=== PATIENT | male | born 1950 | race Caucasian/White ===

== ENCOUNTER 2018-02-14 11:17 | Inpatient (IN) ==
--- NOTE | 2018-02-14 13:01 | ED ---
HPI General Chief Complaint: Recheck/Abnormal Lab/Rx Stated Complaint: Abnormal Labs Time Seen by Provider: 02/14/18 12:47 Source: patient Mode of arrival: ambulatory Limitations: no limitations History of Present Illness HPI narrative: 67-year-old male presents to the emergency room for evaluation of abnormal labs. Patient had lab work done this morning at the [facility]. They called him this afternoon and told him to go to the emergency room; he is not sure which lab is abnormal. Patient states he has been having bright red blood per rectum for the past year intermittently. States he has the urge to go to the bathroom several times throughout the morning and when he sits down only gas comes out. When he wipes, there is just blood. He was told that he has external hemorrhoids but the doctor did not seem concerned about them when they started a year ago. Patient denies any significant abdominal pain or palpitations. States he felt lightheaded when he was on his Parkinson's medication but they changed it a week ago and the symptoms have subsided. He has history of Parkinson's, diabetes, hypertension, and hypercholesterolemia. He also takes a baby aspirin daily. His last colonoscopy was 5 years ago and unremarkable. His next scheduled colonoscopy is July,. complaint: abnormal lab Description of abnormal result: Sent by [facility] for abnormal labs Symptoms since prior visit: no new symptoms Context: called for abnormal lab result Associated symptoms: none Related Data Home Medications Medication Instructions Recorded Confirmed Tylenol PM Extra Strength PO HS 02/14/18 acetaminophen [Tylenol] mg PO QAM PRN 02/14/18 02/14/18 aspirin 81 mg PO DAILY 02/14/18 02/14/18 cholecalciferol (vitamin D3) unit PO DAILY 02/14/18 [Vitamin D3] cyanocobalamin (vitamin B-12) mcg PO DAILY 02/14/18 [Vitamin B-12] glipizide 20 mg PO BID 02/14/18 02/14/18 lisinopril mg PO DAILY 02/14/18 lovastatin mg PO DAILY 02/14/18 metformin 500 mg PO BID 02/14/18 02/14/18 multivitamin [Multiple Vitamins] 1 tab PO DAILY 02/14/18 02/14/18 omega 2-akz-nuh-fish oil [Fish Oil] 1,000 mg PO BID 02/14/18 02/14/18 pyridoxine (vitamin B6) [Vitamin mg PO DAILY 02/14/18 B-6] Allergies Allergy/AdvReac Type Severity Reaction Status Date / Time No Known Allergies Allergy Verified 02/14/18 12:27 Review of Systems ROS: all other systems reviewed are negative PMFSH Family History Family History Mother Family history of lung cancer Social History Social History Substance History: No History of Abuse Smoking Status: Former smoker How Often Do You Have a Drink Containing Alcohol: 2 to 3 times a week Recent Travel in [facility] within the Last 8 Weeks: No Recent Out of Country Travel within the Last 8 Weeks: No Immunization History Tetanus Immunization: <5 Years Hx Influenza Vaccine This Season: Yes Exam Narrative Exam Narrative: GENERAL: Well-nourished, well-developed male in no acute distress. Afebrile. Ambulatory. SKIN: Focused skin assessment warm/dry. HEAD: Normocephalic. EYES: No scleral icterus. No injection or drainage. NECK: Supple, trachea midline. No JVD or lymphadenopathy. CARDIOVASCULAR: Regular rate. Irregular rhythm without murmurs, gallops, or rubs. RESPIRATORY: Breath sounds equal bilaterally. No accessory muscle use. GASTROINTESTINAL: Abdomen soft, non-tender, nondistended. MUSCULOSKELETAL: No cyanosis, or edema. RECTAL EXAM: Examined in the presence of a nurse. No masses or tenderness, stool is brown. Procedures Hemaprompt Stool Procedural Steps Taken: specimen placed in appropriate test area, developer placed on specimen and control areas and controls appropriately positive and negative Hemaprompt Stool Result: positive Course Initial Documented Vital Signs Temperature 98.9 F 02/14/18 11:21 Pulse Rate 72 02/14/18 11:21 Respiratory Rate 16 02/14/18 11:21 Blood Pressure 177/77 H 18 11:21 Pulse Oximetry 95 02/14/18 11:21 Last Documented Vital Signs Temperature 98.9 F 02/14/18 11:21 Pulse Rate 65 02/14/18 18:17 Respiratory Rate 20 02/14/18 18:00 Blood Pressure 173/74 H 02/14/18 18:00 Pulse Oximetry 96 02/14/18 18:18 Medical Decision Making COLIN Attestation COLIN supervised visit: Yes Attestation: I, Dr. Amezquita, have reviewed the advance practice practitioner's documentation and am in agreement, met with the patient face to face, made the diagnosis, and the medical decision making was done by me. 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 Patient also has anemia. He will be admitted to the hospital with a colorectal consult. Patient has been typed and crossed. At this point he does not require transfusion. [facility] Narrative Medical decision making narrative: 67-year-old male presents to the emergency room for evaluation of abnormal labs; he was sent by the [facility]. He has had associated bright red blood per rectum for the past year that worsened over the past several months. Patient was originally told he was having bleeding hemorrhoids. He denies any lightheadedness, palpitations, or weakness. Physical exam is reassuring. Patient is well-appearing. Rectal exam reveals significant, bright red blood. Vital signs stable. IV access established basic labs obtained. CBC shows hemoglobin of 7.7. CMP shows evidence of kidney dysfunction with a creatinine of 1.68. CT of the abdomen and pelvis shows a large mass in the rectum with probable metastases to the lungs. Patient was informed of the findings with recommendation to stay for GI consultation. He understands and agrees to plan. I spoke to Dr. Shetty who agrees to admit this patient to his service. Medical Screen Exam Complete: Yes Emergency Medical Condition: Yes Differential Diagnosis Differential Diagnosis: Anemia, iron deficiency anemia, GI bleed, diverticulosis , cancer, electrolyte abnormality Lab Data Result diagrams: 02/14/18 18:10 02/14/18 18:10 Lab Results 02/14/18 02/14/18 02/14/18 Range/Units 13:30 13:30 13:30 WBC 8.9 (4.0-11.0) th/mm3 RBC 2.46 L (4.50-5.90) mil/mm3 Hgb 7.7 L (13.0-17.0) gm/dL Hct 23.9 L (39.0-51.0) % MCV 97.3 (80.0-100.0) fL MCH 31.4 (27.0-34.0) pg MCHC 32.3 (32.0-36.0) % RDW 14.5 (11.6-17.2) % Plt Count 277 (150-450) th/mm3 MPV 9.7 (7.0-11.0) fL Neut % (Auto) 57.2 (16.0-70.0) % Lymph % (Auto) 28.6 (9.0-44.0) % Wallace % (Auto) 12.2 H (0.0-8.0) % Eos % (Auto) 1.4 (0.0-4.0) % Baso % (Auto) 0.6 (0.0-2.0) % Neut # (Auto) 5.1 (1.8-7.7) th/mm3 Lymph # (Auto) 2.6 (1.0-4.8) th/mm3 Wallace # (Auto) 1.1 H (0.0-0.9) th/mm3 Eos # (Auto) 0.1 (0.0-0.4) th/mm3 Baso # (Auto) 0.1 (0.0-0.2) th/mm3 WBC Differential . Differential Comment Auto diff final PT 10.3 (9.8-11.6) sec INR 1.0 Ratio APTT 23.2 L (24.3-30.1) sec Sodium 141 (136-145) meq/L Potassium 5.1 (3.5-5.1) meq/L Chloride 108 H (98-107) meq/L Carbon Dioxide 26.3 (21.0-32.0) meq/L Anion Gap 7 (5-15) meq/L BUN 34 H (7-18) mg/dL Creatinine 1.68 H (0.60-1.30) mg/dL Estimated GFR 41 L (>89) mL/min Random Glucose 138 H (74-106) mg/dL Calcium 8.8 (8.5-10.1) mg/dL Total Bilirubin 0.2 (0.2-1.0) mg/dL AST 10 L (15-37) U/L ALT 15 (12-78) U/L Alkaline Phosphatase 51 (45-117) U/L Total Protein 7.2 (6.4-8.2) g/dL Albumin 3.5 (3.4-5.0) g/dL Blood Type Blood Type Recheck Antibody Screen MTS Gel Crossmatch Bld Prod Order Comment 02/14/18 02/14/18 02/14/18 Range/Units 13:30 17:47 18:10 WBC 10.7 (4.0-11.0) th/mm3 RBC 2.30 L (4.50-5.90) mil/mm3 Hgb 7.4 L (13.0-17.0) gm/dL Hct 22.3 L (39.0-51.0) % MCV 96.7 (80.0-100.0) fL MCH 32.0 (27.0-34.0) pg MCHC 33.1 (32.0-36.0) % RDW 14.5 (11.6-17.2) % Plt Count 256 (150-450) th/mm3 MPV 9.5 (7.0-11.0) fL Neut % (Auto) 60.0 (16.0-70.0) % Lymph % (Auto) 27.8 (9.0-44.0) % Wallace % (Auto) 10.0 H (0.0-8.0) % Eos % (Auto) 1.9 (0.0-4.0) % Baso % (Auto) 0.3 (0.0-2.0) % Neut # (Auto) 6.4 (1.8-7.7) th/mm3 Lymph # (Auto) 3.0 (1.0-4.8) th/mm3 Wallace # (Auto) 1.1 H (0.0-0.9) th/mm3 Eos # (Auto) 0.2 (0.0-0.4) th/mm3 Baso # (Auto) 0.0 (0.0-0.2) th/mm3 WBC Differential . Differential Comment Auto diff final PT (9.8-11.6) sec INR Ratio APTT (24.3-30.1) sec Sodium (136-145) meq/L Potassium (3.5-5.1) meq/L Chloride (98-107) meq/L Carbon Dioxide (21.0-32.0) meq/L Anion Gap (5-15) meq/L BUN (7-18) mg/dL Creatinine (0.60-1.30) mg/dL Estimated GFR (>89) mL/min Random Glucose (74-106) mg/dL Calcium (8.5-10.1) mg/dL Total Bilirubin (0.2-1.0) mg/dL AST (15-37) U/L ALT (12-78) U/L Alkaline Phosphatase (45-117) U/L Total Protein (6.4-8.2) g/dL Albumin (3.4-5.0) g/dL Blood Type A Positive Blood Type Recheck Required Antibody Screen Negative MTS Gel Crossmatch See Detail Bld Prod Order Comment 02/14/18 Range/Units 18:10 WBC (4.0-11.0) th/mm3 RBC (4.50-5.90) mil/mm3 Hgb (13.0-17.0) gm/dL Hct (39.0-51.0) % MCV (80.0-100.0) fL MCH (27.0-34.0) pg MCHC (32.0-36.0) % RDW (11.6-17.2) % Plt Count (150-450) th/mm3 MPV (7.0-11.0) fL Neut % (Auto) (16.0-70.0) % Lymph % (Auto) (9.0-44.0) % Wallace % (Auto) (0.0-8.0) % Eos % (Auto) (0.0-4.0) % Baso % (Auto) (0.0-2.0) % Neut # (Auto) (1.8-7.7) th/mm3 Lymph # (Auto) (1.0-4.8) th/mm3 Wallace # (Auto) (0.0-0.9) th/mm3 Eos # (Auto) (0.0-0.4) th/mm3 Baso # (Auto) (0.0-0.2) th/mm3 WBC Differential Differential Comment PT (9.8-11.6) sec INR Ratio APTT (24.3-30.1) sec Sodium 140 (136-145) meq/L Potassium 5.1 (3.5-5.1) meq/L Chloride 107 (98-107) meq/L Carbon Dioxide 24.1 (21.0-32.0) meq/L Anion Gap 9 (5-15) meq/L BUN 34 H (7-18) mg/dL Creatinine 1.42 H (0.60-1.30) mg/dL Estimated GFR 50 L (>89) mL/min Random Glucose 79 (74-106) mg/dL Calcium 8.8 (8.5-10.1) mg/dL Total Bilirubin (0.2-1.0) mg/dL AST (15-37) U/L ALT (12-78) U/L Alkaline Phosphatase (45-117) U/L Total Protein (6.4-8.2) g/dL Albumin (3.4-5.0) g/dL Blood Type Blood Type Recheck Antibody Screen MTS Gel Crossmatch Bld Prod Order Comment Imaging Data Radiologist's impression: Abdomen/Pelvis CT 02/14/18 12:54 CONCLUSION: 1. Abnormal soft tissue in the rectum suspicious for rectal mass. Recommend direct visualization. Numerous small nodules at both lung bases suspicious for metastatic disease. Further evaluation with chest CT recommended. 2. Tiny nonobstructing right renal calculus. Small hyperdensities in the right kidney probably represent small hemorrhagic or proteinaceous cysts. Discharge Plan Discharge Disposition Patient Disposition: 30 Still Patient Discharge Condition Condition: Stable Physicians Team ED Provider: Raffy Amezquita ED Midlevel Provider: Audra Lakhani Primary Care Provider: [facility]ician 's Attending Provider: Elisabeth Shetty Other Providers: Maru Guardado Status ED Status: Admitted Patient
[2018-02-14 13:45] LABS: Baso # (Auto) 0.1 th/mm3 (0.0-0.2); Baso % (Auto) 0.6 % (0.0-2.0); Eos # (Auto) 0.1 th/mm3 (0.0-0.4); Eos % (Auto) 1.4 % (0.0-4.0); Hematocrit 23.9 % (39.0-51.0); Hemoglobin 7.7 gm/dL (13.0-17.0); Lymph # (Auto) 2.6 th/mm3 (1.0-4.8); Lymph % (Auto) 28.6 % (9.0-44.0); Mean Corpuscular HGB Conc 32.3 % (32.0-36.0); Mean Corpuscular Hemoglobin 31.4 pg (27.0-34.0); Mean Corpuscular Volume 97.3 fL (80.0-100.0); Mean Platelet Volume 9.7 fL (7.0-11.0); Mono # (Auto) 1.1 th/mm3 (0.0-0.9); Mono % (Auto) 12.2 % (0.0-8.0); Neut # (Auto) 5.1 th/mm3 (1.8-7.7); Neut % (Auto) 57.2 % (16.0-70.0); Platelet Count 277 th/mm3 (150-450); Red Blood Count 2.46 mil/mm3 (4.50-5.90); Red Cell Distribution Width 14.5 % (11.6-17.2); White Blood Count 8.9 th/mm3 (4.0-11.0)
[2018-02-14 13:54] LABS: Activated Partial Thrombo Time 23.2 sec (24.3-30.1); Prothrombin Time 10.3 sec (9.8-11.6)
[2018-02-14 14:06] LABS: Albumin 3.5 g/dL (3.4-5.0); Anion Gap 7 meq/L (5-15); Aspartate Aminotransferase 10 U/L (15-37); Blood Urea Nitrogen 34 mg/dL (7-18); Calcium 8.8 mg/dL (8.5-10.1); Carbon Dioxide 26.3 meq/L (21.0-32.0); Chloride 108 meq/L (98-107); Glomerular Filtration Rate 41 mL/min (>89); Glucose,Random 138 mg/dL (74-106); Potassium 5.1 meq/L (3.5-5.1); Sodium 141 meq/L (136-145)
[2018-02-14 14:10] LABS: Alanine Aminotransferase 15 U/L (12-78); Alkaline Phosphatase 51 U/L (45-117); Total Protein 7.2 g/dL (6.4-8.2)
--- NOTE | 2018-02-14 14:13 | CT ---
EXAM DATE: 02/14/2018 1:55 PM EDT AGE/SEX: 67 years / Male INDICATIONS: Rectal bleeding on and off for one year. CLINICAL DATA: This is the patient's initial encounter. Patient reports that signs and symptoms have been present for 1 day and indicates a pain score of 6/10. MEDICAL/SURGICAL HISTORY: Diabetes. Hypertension. Parkinson's disease. None. RADIATION DOSE: 13.15 CTDI (mGy) COMPARISON: No prior exams available for comparison. TECHNIQUE: Multiple contiguous axial images were obtained through the abdomen. Images were obtained using multiple row detector helical technique. Using automated exposure control and adjustment of the mA and/or kV according to patient size, radiation dose was kept as low as reasonably achievable to o btain optimal diagnostic quality images. DICOM format image data is available electronically for rev iew and comparison. FINDINGS: There is abnormal soft tissue in the rectum. Margins are difficult to delineate. Findings are suspici ous for a rectal mass. This would be better evaluated with direct visualization. There is mild constipation. No bowel obstruction. Lung bases demonstrate numerous bilateral pulmonary nodules most characteristic of metastatic disease . Largest near the inferior right fissure measures about 1.4 cm in diameter. No acute findings in the liver, spleen, adrenals, kidneys or pancreas. Tiny nonobstructing right atif l calculus. Multiple small suspected proteinaceous cysts in the right kidney. No calcified gallstones or biliary ductal dilatation. No acute bony abnormalities. CONCLUSION: 1. Abnormal soft tissue in the rectum suspicious for rectal mass. Recommend direct visualization. Nu merous small nodules at both lung bases suspicious for metastatic disease. Further evaluation with ch est CT recommended. 2. Tiny nonobstructing right renal calculus. Small hyperdensities in the right kidney probably repre sent small hemorrhagic or proteinaceous cysts. Electronically signed by: Ez Davis MD 02/14/2018 2:12 PM EDT
[2018-02-14] MEDS ORDERED: Sodium Chlor 0.9% Inj 250 ML IV.SIG SCH (18:00)
[2018-02-14 18:45] LABS: Baso % (Auto) 0.3 % (0.0-2.0); Eos # (Auto) 0.2 th/mm3 (0.0-0.4); Eos % (Auto) 1.9 % (0.0-4.0); Hematocrit 22.3 % (39.0-51.0); Hemoglobin 7.4 gm/dL (13.0-17.0); Lymph % (Auto) 27.8 % (9.0-44.0); Mean Corpuscular HGB Conc 33.1 % (32.0-36.0); Mean Corpuscular Volume 96.7 fL (80.0-100.0); Mean Platelet Volume 9.5 fL (7.0-11.0); Mono # (Auto) 1.1 th/mm3 (0.0-0.9); Neut # (Auto) 6.4 th/mm3 (1.8-7.7); Platelet Count 256 th/mm3 (150-450); Red Cell Distribution Width 14.5 % (11.6-17.2); White Blood Count 10.7 th/mm3 (4.0-11.0)
[2018-02-14 18:49] LABS: Calcium 8.8 mg/dL (8.5-10.1); Carbon Dioxide 24.1 meq/L (21.0-32.0); Potassium 5.1 meq/L (3.5-5.1)
--- NOTE | 2018-02-14 19:18 | P.HPIM ---
History of Present Illness Service: [facility] hospitalist Primary Care Physician: Physician [facility] Chief Complaint: Abnormal labs, rectal bleeding History of Present Illness: 67-year-old male with a medical history significant for hypertension, hyperlipidemia, diabetes, Parkinson's disease sent from the [facility] for abnormal labs. Patient reports he has been having intermittent bright red blood per rectum for the past year. He reports the severity has gotten worst over the past 2 months. He also noted soft pencil like caliber stool. He denies significant weight loss or night sweats. His last colonoscopy was about 5 years ago and he is scheduled to have a repeat colonoscopy in 2019. He reports he previously saw his doctor about the rectal bleeding and was told he had external hemorrhoids. He denies any nausea or vomiting. A CAT scan in the emergency room revealed a possible rectal mass concerning for malignancy. He is a myoglobin was found to be 7.7. He reports some baseline shortness of breath with exertion but denies chest pain or lightheadedness. - Diagnosis (1) Acute GI bleeding (2) Rectal mass (3) Lung mass (4) Symptomatic anemia (5) CAROLYNN (acute kidney injury) Inpatient Certification: I certify that the inpatient services were ordered in accordance with Medicare regulations governing the order. This includes certification that hospital inpatient services are reasonable and necessary and in the case of services not specified as inpatient-only under 42 CFR 419.22(n), that they are appropriately provided as inpatient services in accordance to with the 2-midnight benchmark under 43 CFR 412.3(e) Estimated Total Length of Stay (Days): 3 Plans for Post Hospital Care: Home Review of Systems All other systems reviewed negative except as stated in HPI [facility] - History History Provided By: Patient, Pr Specialist / EMT - Medical History Medical History: Medical History (Last Reviewed 02/14/18 @ 19:07 by Elisabeth Shetty MD) Diabetes Hypercholesteremia Hypertension Neuropathy Parkinsons disease - Surgical History Surgical History: Surgical History (Last Reviewed 02/14/18 @ 19:07 by Elisabeth Shetty MD) No history of previous surgery - Family History Family History: Family History (Last Updated 02/14/18 @ 19:07 by Elisabeth Shetty MD) Mother Family history of lung cancer - Tobacco History Smoking Status: Former smoker - Alcohol History How Often Do You Have a Drink Containing Alcohol: 2 to 3 times a week - Substance Use History Substance History: No History of Abuse - Travel History Recent Travel in the [place] Within the Last 8 Weeks: No Recent Travel Out of the Country Within the Last 8 Weeks: No - Immunization History Tetanus Immunization: <5 Years Hx Influenza Vaccine This Season: Yes Medications and Allergies Active Medications: Active Medications Potassium Chloride 10 meq/ (Sodium Chloride) 1,005 mls @ 100 mls/hr IV.CONT .Q10H3M DANIELLA Sodium Chloride (Ns Inj) 250 mls @ 15 mls/hr IV.SIG ONCE DANIELLA Stop: 02/15/18 10:39 Ondansetron HCl (Zofran Inj) 4 mg IV.PUSH Q6H PRN PRN Reason: NAUSEA Sodium Chloride (Ns Flush) 2 ml IV.FLUSH BID DANIELLA Sodium Chloride (Ns Flush) 2 ml IV.FLUSH PRN PRN PRN Reason: FLUSH AFTER USING IV ACCESS Allergies Allergy/AdvReac Type Severity Reaction Status Date / Time No Known Allergies Allergy Verified 02/14/18 12:27 Home Medications Medication Instructions Recorded Confirmed Type Tylenol PM Extra Strength PO HS 02/14/18 History acetaminophen [Tylenol] mg PO QAM PRN 02/14/18 02/14/18 History aspirin 81 mg PO DAILY 02/14/18 02/14/18 History cholecalciferol (vitamin D3) unit PO DAILY 02/14/18 History [Vitamin D3] cyanocobalamin (vitamin B-12) mcg PO DAILY 02/14/18 History [Vitamin B-12] glipizide 20 mg PO BID 02/14/18 02/14/18 History lisinopril mg PO DAILY 02/14/18 History lovastatin mg PO DAILY 02/14/18 History metformin 500 mg PO BID 02/14/18 02/14/18 History multivitamin [Multiple Vitamins] 1 tab PO DAILY 02/14/18 02/14/18 History omega 5-pab-jqk-fish oil [Fish Oil] 1,000 mg PO BID 02/14/18 02/14/18 History pyridoxine (vitamin B6) [Vitamin mg PO DAILY 02/14/18 History B-6] Exam Vital signs: Vital Signs 02/14/18 11:21 02/14/18 12:26 02/14/18 18:00 Temperature 98.9 F Pulse Rate 72 62 65 Respiratory Rate 16 18 20 Blood Pressure 177/77 H 148/63 H 173/74 H Pulse Oximetry 95 97 96 02/14/18 18:17 02/14/18 18:18 Temperature Pulse Rate 65 Respiratory Rate Blood Pressure Pulse Oximetry 96 Intake & Output 02/14/18 02/14/18 02/15/18 06:59 18:59 06:59 Weight 104.326 kg Narrative: GENERAL: This is a well-nourished, well-developed patient, in no apparent distress. CARDIOVASCULAR: Normal rate and regular rhythm without murmurs, gallops, or rubs. RESPIRATORY: Good respiratory efforts. Breath sounds equal and clear to auscultation bilaterally. GASTROINTESTINAL: Abdomen soft, non-tender, non-distended. Normal active bowel sounds MUSCULOSKELETAL: Extremities without cyanosis, or edema. RECTAL exam deferred. ED provider reports obvious bright red blood externally. NEURO: Alert & Oriented x4 to person, place, time, situation. Moves all ext x4 PSYCH: Appropriate mood and affect. Results - Labs CBC & Chem 7: 02/14/18 18:10 02/14/18 18:10 Labs: Short CBC 02/14/18 02/14/18 Range/Units 13:30 18:10 WBC 8.9 10.7 (4.0-11.0) th/mm3 Hgb 7.7 L 7.4 L (13.0-17.0) gm/dL Hct 23.9 L 22.3 L (39.0-51.0) % Plt Count 277 256 (150-450) th/mm3 BMP 02/14/18 02/14/18 13:30 18:10 Sodium 141 140 Potassium 5.1 5.1 Chloride 108 H 107 Carbon Dioxide 26.3 24.1 BUN 34 H 34 H Creatinine 1.68 H 1.42 H Calcium 8.8 8.8 Liver Function 02/14/18 Range/Units 13:30 Total Bilirubin 0.2 (0.2-1.0) mg/dL AST 10 L (15-37) U/L ALT 15 (12-78) U/L Alkaline Phosphatase 51 (45-117) U/L Albumin 3.5 (3.4-5.0) g/dL - Imaging Impressions Abdomen/Pelvis CT 02/14/18 12:54 CONCLUSION: 1. Abnormal soft tissue in the rectum suspicious for rectal mass. Recommend direct visualization. Numerous small nodules at both lung bases suspicious for metastatic disease. Further evaluation with chest CT recommended. 2. Tiny nonobstructing right renal calculus. Small hyperdensities in the right kidney probably represent small hemorrhagic or proteinaceous cysts. Caprini VTE Risk Assessment Caprini VTE Risk Assessment: Moderate/High Risk (score >= 2) VTE Pharmacological Exception Reason: Active bleeding Caprini Risk Assessment Model: Point Value = 1 Point Value = 2 Point Value = 3 Point Value = 5 Age 41-60 Minor surgery BMI > 25 kg/m2 Swollen legs Varicose veins or History of unexplained or recurrent spontaneous Oral contraceptives or hormone replacement Sepsis (< 1 month) Serious lung disease, including pneumonia (< 1 month) Abnormal pulmonary function Acute myocardial infarction Congestive heart failure (< 1 month) History of inflammatory bowel disease Medical patient at bed rest Age 61-74 Arthroscopic surgery Major open surgery (> 45 min) Laparoscopic surgery (> 45 min) Malignancy Confined to bed (> 72 hours) Immobilizing plaster cast Central venous access Age >= 75 History of VTE Family history of VTE Factor V Leiden Prothrombin [id number] Lupus anticoagulant Anticardiolipin antibodies Elevated serum homocysteine Heparin-induced thrombocytopenia Other congenital or acquired thrombophilia Stroke (< 1 month) Elective arthroplasty Hip, pelvis, or leg fracture Acute spinal cord injury (< 1 month) Prophylaxis Regimen: Total Risk Factor Score Risk Level Prophylaxis Regimen 0-1 Low Early ambulation 2 Moderate Order ONE of the following: *Sequential Compression Device (SCD) *Heparin 5000 units SQ BID 3-4 Higher Order ONE of the following medications: *Heparin 5000 units SQ TID *Enoxaparin/Lovenox 40 mg SQ daily (WT < 150 kg, CrCl > 30 mL/min) *Enoxaparin/Lovenox 30 mg SQ daily (WT < 150 kg, CrCl > 10-29 mL/min) *Enoxaparin/Lovenox 30 mg SQ BID (WT < 150 kg, CrCl > 30 mL/min) AND/OR *Sequential Compression Device (SCD) 5 or more Highest Order ONE of the following medications: *Heparin 5000 units SQ TID (Preferred with Epidurals) *Enoxaparin/Lovenox 40 mg SQ daily (WT < 150 kg, CrCl > 30 mL/min) *Enoxaparin/Lovenox 30 mg SQ daily (WT < 150 kg, CrCl > 10-29 mL/min) *Enoxaparin/Lovenox 30 mg SQ BID (WT < 150 kg, CrCl > 30 mL/min) AND *Sequential Compression Device (SCD) Assessment and Plan - Assessment (1) Acute GI bleeding Code(s): K92.2 - Gastrointestinal hemorrhage, unspecified Status: Acute (2) Rectal mass Code(s): K62.9 - Disease of anus and rectum, unspecified Status: Acute (3) Lung mass Code(s): R91.8 - Other nonspecific abnormal finding of lung field Status: Acute (4) Symptomatic anemia Code(s): D64.9 - Anemia, unspecified Status: Acute (5) CAROLYNN (acute kidney injury) Code(s): N17.9 - Acute kidney failure, unspecified Status: Acute - Plan 67-year-old male with history of intermittent rectal bleeding for the past year. CT of the abdomen and pelvis revealed a rectal mass concerning for malignancy. Acute on chronic rectal bleeding/rectal mass: - Consult gastroenterology. Will need direct visualization and biopsy. - Serial H&H and transfuse as needed. Acute on chronic anemia secondary to GI bleeding: - Suspect he will need transfusion. Follow serial H&H and transfuse for hemoglobin less than 7. - GI consulted as above. Lung nodules concerning for metastatic disease noted on abdominal CT: - We will obtain CT of the chest. Diabetes: Hold oral hypoglycemic agents. -Sliding scale insulin with Accu-Cheks Hypertension: -Continue lisinopril CAROLYNN: - Probably prerenal. IVF ordered - Follow renal functions. DVT PPx: SCDs. Chemoprophylaxis contraindicated due to GI bleeding.
[2018-02-14] MEDS ORDERED: Potassium Chloride Inj 10 MEQ in Sodium Chloride 0.45 % Inj 1,000 ML IV.CONT SCH (20:00)
--- NOTE | 2018-02-14 20:44 | CT ---
EXAM DATE: 02/14/2018 8:18 PM EDT AGE/SEX: 67 years / Male INDICATIONS: Evaluate for metastatic disease. CLINICAL DATA: This is the patient's initial encounter. Patient reports that signs and symptoms have been present for 1 day and indicates a pain score of 0/10. MEDICAL/SURGICAL HISTORY: Diabetes mellitus type II. Hypertension. Parkinson's disease. None. RADIATION DOSE: 7.43 CTDI (mGy) COMPARISON: No prior exams available for comparison. TECHNIQUE: Multiple contiguous axial images were obtained through the chest without contrast. Image s were obtained in suspended respiration using multiple row detector helical technique. Using automa yuri exposure control and adjustment of the mA and/or kV according to patient size, radiation dose was kept as low as reasonably achievable to obtain optimal diagnostic quality images. DICOM format imag e data is available electronically for review and comparison. FINDINGS: Lungs: The lungs are symmetrically aerated. There are multiple scattered bilateral noncalcified pulm onary nodules. These measure from less than 1 mm up to approximately 1.5 cm. There are no confluent i nfiltrates.. Mediastinum: There is good visualization of the great vessels of the middle mediastinum. No evidenc e of mediastinal or hilar adenopathy/mass. Pleurae: No evidence of focal thickening or pleural effusion. Axillae: Unremarkable. Bony Structures: There is abnormal sclerosis of the T9 vertebral body and posterior elements. There is a single small sclerotic foci in T4 vertebral body as well. Miscellaneous: The examination was extended to include the upper abdomen, and both adrenal glands ar e normal in size and configuration. CONCLUSION: 1. Multiple bilateral noncalcified pulmonary nodules characteristic of metastatic disease. 2. Abnormal sclerosis of the T9 vertebral body posterior elements consistent with metastatic disease . There is a small sclerotic foci in the T4 vertebral body as well. These are concerning for metastat ic disease Electronically signed by: Benjamin Douglas MD 02/14/2018 8:42 PM EDT
[2018-02-14] MEDS: Sodium Chloride 0.45 % Inj 1,000 ML IV.CONT SCH (23:27)
[2018-02-15 02:05] LABS: Hematocrit 23.1 % (39.0-51.0); Hemoglobin 7.4 gm/dL (13.0-17.0)
[2018-02-15] MEDS: Lisinopril 5 MG Tablet PO SCH (09:33)
[2018-02-15] MEDS: Sodium Chloride 0.45 % Inj 1,000 ML IV.CONT SCH (09:37)
--- NOTE | 2018-02-15 10:57 | P.PNIM ---
Subjective Interval history: Reports no abdominal pain. Feels pretty good. No dizziness. Wants to go home tomorrow due to a that had a recent stroke. He states that he will not be able to stay longer and is willing to continue the workup as an outpatient. Physical Exam Vital signs: Vital Signs 02/14/18 11:21 02/14/18 12:26 02/14/18 18:00 Temperature 98.9 F Pulse Rate 72 62 65 Respiratory Rate 16 18 20 Blood Pressure 177/77 H 148/63 H 173/74 H Pulse Oximetry 95 97 96 02/14/18 18:17 02/14/18 18:18 02/14/18 20:00 Temperature 97.9 F Pulse Rate 65 70 Respiratory Rate 20 Blood Pressure 173/73 H Pulse Oximetry 96 97 02/15/18 00:00 02/15/18 08:00 Temperature 98.1 F 98.6 F Pulse Rate 76 74 Respiratory Rate 20 16 Blood Pressure 145/64 H 157/74 H Pulse Oximetry 99 95 Intake & Output 02/14/18 02/15/18 02/15/18 18:59 06:59 18:59 Intake Total 1000 / 1000 Balance 1000 / 1000 Weight 104.326 kg Intake: IV 1000 / 1000 1/2 Normal Saline Inj 1,000 ML 1000 / 1000 @ 100 mls/hr IV.CONT .Q10H [facility] Rx#:[id number] Narrative: GENERAL: This is a well-nourished, well-developed patient, in no apparent distress. CARDIOVASCULAR: Regular rate and rhythm without murmurs, gallops, or rubs. RESPIRATORY: Clear to auscultation. Breath sounds equal bilaterally. No wheezes , rales, or rhonchi. GASTROINTESTINAL: Abdomen soft, non-tender, nondistended. Normal active bowel sounds MUSCULOSKELETAL: Extremities without clubbing, cyanosis, or edema. NEURO: Alert & Oriented x4 to person, place, time, situation. Moves all ext x4 Results - Labs CBC & Chem 7: 02/15/18 01:53 02/14/18 18:10 Laboratory Results - last 24 hr 02/14/18 02/14/18 02/14/18 13:30 13:30 13:30 WBC 8.9 RBC 2.46 L Hgb 7.7 L Hct 23.9 L MCV 97.3 MCH 31.4 MCHC 32.3 RDW 14.5 Plt Count 277 MPV 9.7 Neut % (Auto) 57.2 Lymph % (Auto) 28.6 [place] % (Auto) 12.2 H Eos % (Auto) 1.4 Baso % (Auto) 0.6 Neut # (Auto) 5.1 Lymph # (Auto) 2.6 [place] # (Auto) 1.1 H Eos # (Auto) 0.1 Baso # (Auto) 0.1 WBC Differential . Differential Comment Auto diff final PT 10.3 INR 1.0 APTT 23.2 L Sodium 141 Potassium 5.1 Chloride 108 H Carbon Dioxide 26.3 Anion Gap 7 BUN 34 H Creatinine 1.68 H Estimated GFR 41 L Random Glucose 138 H Calcium 8.8 Total Bilirubin 0.2 AST 10 L ALT 15 Alkaline Phosphatase 51 Total Protein 7.2 Albumin 3.5 Blood Type Blood Type Recheck Antibody Screen MTS Gel Crossmatch Bld Prod Order Comment 02/14/18 02/14/18 02/14/18 13:30 17:47 18:10 WBC 10.7 RBC 2.30 L Hgb 7.4 L Hct 22.3 L MCV 96.7 MCH 32.0 MCHC 33.1 RDW 14.5 Plt Count 256 MPV 9.5 Neut % (Auto) 60.0 Lymph % (Auto) 27.8 [place] % (Auto) 10.0 H Eos % (Auto) 1.9 Baso % (Auto) 0.3 Neut # (Auto) 6.4 Lymph # (Auto) 3.0 [place] # (Auto) 1.1 H Eos # (Auto) 0.2 Baso # (Auto) 0.0 WBC Differential . Differential Comment Auto diff final PT INR APTT Sodium Potassium Chloride Carbon Dioxide Anion Gap BUN Creatinine Estimated GFR Random Glucose Calcium Total Bilirubin AST ALT Alkaline Phosphatase Total Protein Albumin Blood Type A Positive Blood Type Recheck Required Antibody Screen Negative MTS Gel Crossmatch See Detail Bld Prod Order Comment 02/14/18 02/15/18 18:10 01:53 WBC RBC Hgb 7.4 L Hct 23.1 L MCV MCH MCHC RDW Plt Count MPV Neut % (Auto) Lymph % (Auto) [place] % (Auto) Eos % (Auto) Baso % (Auto) Neut # (Auto) Lymph # (Auto) [place] # (Auto) Eos # (Auto) Baso # (Auto) WBC Differential Differential Comment PT INR APTT Sodium 140 Potassium 5.1 Chloride 107 Carbon Dioxide 24.1 Anion Gap 9 BUN 34 H Creatinine 1.42 H Estimated GFR 50 L Random Glucose 79 Calcium 8.8 Total Bilirubin AST ALT Alkaline Phosphatase Total Protein Albumin Blood Type Blood Type Recheck Antibody Screen MTS Gel Crossmatch Bld Prod Order Comment - Imaging Impressions Chest CT 02/14/18 00:00 CONCLUSION: 1. Multiple bilateral noncalcified pulmonary nodules characteristic of metastatic disease. 2. Abnormal sclerosis of the T9 vertebral body posterior elements consistent with metastatic disease. There is a small sclerotic foci in the T4 vertebral body as well. These are concerning for metastatic disease Abdomen/Pelvis CT 02/14/18 12:54 CONCLUSION: 1. Abnormal soft tissue in the rectum suspicious for rectal mass. Recommend direct visualization. Numerous small nodules at both lung bases suspicious for metastatic disease. Further evaluation with chest CT recommended. 2. Tiny nonobstructing right renal calculus. Small hyperdensities in the right kidney probably represent small hemorrhagic or proteinaceous cysts. Assessment and Plan - Assessment (1) Acute GI bleeding Code(s): K92.2 - Gastrointestinal hemorrhage, unspecified Status: Acute (2) Rectal mass Code(s): K62.9 - Disease of anus and rectum, unspecified Status: Acute (3) Lung mass Code(s): R91.8 - Other nonspecific abnormal finding of lung field Status: Acute (4) Symptomatic anemia Code(s): D64.9 - Anemia, unspecified Status: Acute (5) CAROLYNN (acute kidney injury) Code(s): N17.9 - Acute kidney failure, unspecified Status: Acute - Plan 67-year-old male with history of intermittent rectal bleeding for the past year. CT of the abdomen and pelvis revealed a rectal mass concerning for malignancy. Acute on chronic rectal bleeding/rectal mass: - Consult gastroenterology. Will need direct visualization and biopsy. - Serial H&H and transfuse 2 units of packed red blood cell today, hemoglobin currently 7.4 Acute on chronic anemia secondary to GI bleeding: - Suspect he will need transfusion. Follow serial H&H and transfuse 2 units of packed red blood cell today - GI consulted as above. Lung nodules concerning for metastatic disease noted on abdominal CT: -Follow-up with CT of the chest. Diabetes mellitus type II: Hold oral hypoglycemic agents. -Sliding scale insulin with Accu-Cheks Hypertension, chronic essential: -Continue lisinopril CAROLYNN superimposed on chronic kidney disease stage III: - Probably prerenal. IVF ordered - Follow renal functions. Avoid nephrotoxins DVT PPx: SCDs. Chemoprophylaxis contraindicated due to GI bleeding. Discharge Planning: Home when medically stable.
[2018-02-15] MEDS ORDERED: Sodium Chlor 0.9% Inj 250 ML IV.SIG SCH (11:00)
[2018-02-15 12:48] LABS: Hematocrit 24.6 % (39.0-51.0)
--- NOTE | 2018-02-15 12:51 | P.CONGI ---
History of Present Illness Consult date: 02/15/18 Consult reason: GI bleed Chief complaint: Lower GI bleed History of Present Illness: This is an obese male who was admitted on 02/14/2018 with intermittent bright red bleeding from the rectal area. He notes symptoms for at least the past year but worsening symptoms over the past 2 months. He also notes a change in size and consistency of stools which now is about the size of a pencil. He also notes increased gas and bloating and the stool appears to have a shredded consistency with some incontinence. Patient has had a history of external hemorrhoids in the past which he was initially been monitored for for some of his rectal bleeding. Patient denies any previous history of EGD and colonoscopy proximally 4 years ago. He states the next surveillance colonoscopy was due in 2019 for history of polyps. Initial labs showed hemoglobin 7.7 and 7.4. Patient was transfused with 2 units of packed RBCs and now hemoglobin remains 8. CT scan performed on 02/14/2018 showed abnormal soft tissue in the rectum suspicious for rectal mass recommend direct visualization. Numerous small nodules at both lung bases suspicious for metastatic disease. Currently patient is sitting up in the chair able to answer simple questions and a fair historian. Other symptoms noted is dyspepsia which started several weeks ago but has worsened over the past week. He denies any dysphasia and no obvious nausea or vomiting. Aggregating factors initially were felt to be some of his medications, but now he notes symptoms continue to persist. Review of Systems All other systems reviewed negative except as stated in HPI PMFSH - History History Provided By: Patient, [employer] / EMT - Medical History Medical History: Medical History (Last Reviewed 02/14/18 @ 19:07 by Elisabeth Shetty MD) Diabetes Hypercholesteremia Hypertension Neuropathy Parkinsons disease - Surgical History Surgical History: Surgical History (Last Reviewed 02/14/18 @ 19:07 by Elisabeth Shetty MD) No history of previous surgery - Family History Family History: Family History (Last Updated 02/14/18 @ 19:07 by Elisabeth Shetty MD) Mother Family history of lung cancer - Tobacco History Second Hand Smoke Exposure: No Tobacco Use In Past 30 Days: No Smoking Status: Former smoker Tobacco Type: Cigarettes - Alcohol History How Often Do You Have a Drink Containing Alcohol: 2 to 3 times a week - Substance Use History Substance History: No History of Abuse - Travel History Recent Travel in the [place] Within the Last 8 Weeks: No Recent Travel Out of the Country Within the Last 8 Weeks: No - Immunization History Tetanus Immunization: <5 Years Hx Influenza Vaccine This Season: Yes Medications and Allergies Active Medications: Active Medications Bisacodyl (Dulcolax Ec) 20 mg PO ONCE ONE Stop: 02/15/18 16:01 Clonidine HCl (Catapres) 0.1 mg PO Q6H PRN PRN Reason: SEE LABEL COMMENTS Sodium Chloride (Ns Inj) 250 mls @ 15 mls/hr IV.SIG ONCE [facility] Stop: 02/16/18 03:39 Lisinopril (Prinivil) 5 mg PO DAILY [facility] Last Admin: 02/15/18 09:33 Dose: 5 mg Magnesium Citrate (Citroma Liq) 300 ml PO ONCE ONE Stop: 02/15/18 16:01 Magnesium Citrate (Citroma Liq) 300 ml PO ONCE ONE Stop: 02/15/18 18:01 Miscellaneous (Pill Splitter) 1 each OTHER UNSCH [facility] Ondansetron HCl (Zofran Inj) 4 mg IV.PUSH Q6H PRN PRN Reason: NAUSEA Pravastatin Sodium (Pravachol) 5 mg PO DAILY [facility] Last Admin: 02/15/18 09:33 Dose: 5 mg Sodium Chloride (Ns Flush) 2 ml IV.FLUSH BID [facility] Last Admin: 02/15/18 09:34 Dose: Not Given Sodium Chloride (Ns Flush) 2 ml IV.FLUSH PRN PRN PRN Reason: FLUSH AFTER USING IV ACCESS Allergies Allergy/AdvReac Type Severity Reaction Status Date / Time No Known Allergies Allergy Verified 02/14/18 12:27 Home Medications Medication Instructions Recorded Confirmed Type Tylenol PM Extra Strength PO HS 02/14/18 History acetaminophen [Tylenol] mg PO QAM PRN 02/14/18 02/14/18 History aspirin 81 mg PO DAILY 02/14/18 02/14/18 History cholecalciferol (vitamin D3) unit PO DAILY 02/14/18 History [Vitamin D3] cyanocobalamin (vitamin B-12) mcg PO DAILY 02/14/18 History [Vitamin B-12] glipizide 20 mg PO BID 02/14/18 02/14/18 History lisinopril mg PO DAILY 02/14/18 History lovastatin mg PO DAILY 02/14/18 History metformin 500 mg PO BID 02/14/18 02/14/18 History multivitamin [Multiple Vitamins] 1 tab PO DAILY 02/14/18 02/14/18 History omega 9-nrx-eci-fish oil [Fish Oil] 1,000 mg PO BID 02/14/18 02/14/18 History pyridoxine (vitamin B6) [Vitamin mg PO DAILY 02/14/18 History B-6] Exam Vital signs: Vital Signs 02/14/18 18:00 02/14/18 18:17 02/14/18 18:18 Temperature Pulse Rate 65 65 Respiratory Rate 20 Blood Pressure 173/74 H Pulse Oximetry 96 96 02/14/18 20:00 02/15/18 00:00 02/15/18 08:00 Temperature 97.9 F 98.1 F 98.6 F Pulse Rate 70 76 74 Respiratory Rate 20 20 16 Blood Pressure 173/73 H 145/64 H 157/74 H Pulse Oximetry 97 99 95 02/15/18 12:08 02/15/18 12:26 Temperature 98.6 F 98.6 F Pulse Rate 64 68 Respiratory Rate 16 18 Blood Pressure 157/65 H 168/79 H Pulse Oximetry 97 98 Intake & Output 02/14/18 02/15/18 02/15/18 18:59 06:59 18:59 Intake Total 1000 / 1000 Balance 1000 / 1000 Weight 104.326 kg Intake: IV 1000 / 1000 1/2 Normal Saline Inj 1,000 ML 1000 / 1000 @ 100 mls/hr IV.CONT .Q10H [facility] Rx#:[id number] Intake (Blood Product) Amt 0 / 0 Rbc As-3 Leukoreduced Unit 0 / 0 [id number] - Constitutional mild distress, morbidly obese (Overweight) - Routine HEENT Exam Head: Present: normocephalic ENT: Present: mucous membranes moist - Routine Respiratory Exam Present: accessory muscle use (Low volumes but no acute wheezing or rhonchi) - Routine Cardiovascular Exam Present: S1, S2 - Routine Abdominal Exam Present: soft (Round,taut, obese, active bowel sounds, no abdominal pain to light palpation) - Routine Neurological Exam Present: alert Results - Labs CBC & Chem 7: 02/15/18 11:30 02/14/18 18:10 Labs: Laboratory Results - last 24 hr 02/14/18 02/14/18 02/14/18 13:30 13:30 13:30 WBC 8.9 RBC 2.46 L Hgb 7.7 L Hct 23.9 L MCV 97.3 MCH 31.4 MCHC 32.3 RDW 14.5 Plt Count 277 MPV 9.7 Neut % (Auto) 57.2 Lymph % (Auto) 28.6 [place] % (Auto) 12.2 H Eos % (Auto) 1.4 Baso % (Auto) 0.6 Neut # (Auto) 5.1 Lymph # (Auto) 2.6 [place] # (Auto) 1.1 H Eos # (Auto) 0.1 Baso # (Auto) 0.1 WBC Differential . Differential Comment Auto diff final PT 10.3 INR 1.0 APTT 23.2 L Sodium 141 Potassium 5.1 Chloride 108 H Carbon Dioxide 26.3 Anion Gap 7 BUN 34 H Creatinine 1.68 H Estimated GFR 41 L Random Glucose 138 H Calcium 8.8 Total Bilirubin 0.2 AST 10 L ALT 15 Alkaline Phosphatase 51 Total Protein 7.2 Albumin 3.5 Blood Type Blood Type Recheck Antibody Screen MTS Gel Crossmatch Bld Prod Order Comment 02/14/18 02/14/18 02/14/18 13:30 17:47 18:10 WBC 10.7 RBC 2.30 L Hgb 7.4 L Hct 22.3 L MCV 96.7 MCH 32.0 MCHC 33.1 RDW 14.5 Plt Count 256 MPV 9.5 Neut % (Auto) 60.0 Lymph % (Auto) 27.8 [place] % (Auto) 10.0 H Eos % (Auto) 1.9 Baso % (Auto) 0.3 Neut # (Auto) 6.4 Lymph # (Auto) 3.0 [place] # (Auto) 1.1 H Eos # (Auto) 0.2 Baso # (Auto) 0.0 WBC Differential . Differential Comment Auto diff final PT INR APTT Sodium Potassium Chloride Carbon Dioxide Anion Gap BUN Creatinine Estimated GFR Random Glucose Calcium Total Bilirubin AST ALT Alkaline Phosphatase Total Protein Albumin Blood Type A Positive Blood Type Recheck Required Antibody Screen Negative MTS Gel Crossmatch See Detail Bld Prod Order Comment 02/14/18 02/15/18 02/15/18 18:10 01:53 11:30 WBC RBC Hgb 7.4 L 8.0 L Hct 23.1 L 24.6 L MCV MCH MCHC RDW Plt Count MPV Neut % (Auto) Lymph % (Auto) [place] % (Auto) Eos % (Auto) Baso % (Auto) Neut # (Auto) Lymph # (Auto) [place] # (Auto) Eos # (Auto) Baso # (Auto) WBC Differential Differential Comment PT INR APTT Sodium 140 Potassium 5.1 Chloride 107 Carbon Dioxide 24.1 Anion Gap 9 BUN 34 H Creatinine 1.42 H Estimated GFR 50 L Random Glucose 79 Calcium 8.8 Total Bilirubin AST ALT Alkaline Phosphatase Total Protein Albumin Blood Type Blood Type Recheck Antibody Screen MTS Gel Crossmatch Bld Prod Order Comment - Imaging Impressions Chest CT 02/14/18 00:00 CONCLUSION: 1. Multiple bilateral noncalcified pulmonary nodules characteristic of metastatic disease. 2. Abnormal sclerosis of the T9 vertebral body posterior elements consistent with metastatic disease. There is a small sclerotic foci in the T4 vertebral body as well. These are concerning for metastatic disease Abdomen/Pelvis CT 02/14/18 12:54 CONCLUSION: 1. Abnormal soft tissue in the rectum suspicious for rectal mass. Recommend direct visualization. Numerous small nodules at both lung bases suspicious for metastatic disease. Further evaluation with chest CT recommended. 2. Tiny nonobstructing right renal calculus. Small hyperdensities in the right kidney probably represent small hemorrhagic or proteinaceous cysts. Assessment and Plan (1) Dyspepsia Status: Acute Code(s): R10.13 - Epigastric pain (2) Acute GI bleeding Status: Acute Code(s): K92.2 - Gastrointestinal hemorrhage, unspecified (3) Rectal mass Status: Acute Code(s): K62.9 - Disease of anus and rectum, unspecified (4) Symptomatic anemia Status: Acute Code(s): D64.9 - Anemia, unspecified - Plan Dyspepsia worse over the past 1-2 weeks. No previous EGD in the past and no previous antacids or medications for dyspepsia taken. Rectal mass seen on CT scan and bloody stools onset of symptoms approximately 1 year ago history of external hemorrhoids Pencil thin stools worsened over the past 2 months in caliber size and patient notes stool consistency shredding. Patient had transfusion 2 units on 02/14/2018 Notes history of Parkinson's disease, diabetes, hyperlipidemia and hypertension according to the record. History of polyps, last colonoscopy surveillance possibly 4 years ago. Notes next colonoscopy would been due in 2019. Discussed with patient the need for EGD and colonoscopy but he is very concerned about his sick who is in a wheelchair at home. He states he needs to be out of the hospital as soon as possible to check on her but then could possibly come back. Supportive care given Plan Clear liquids today N.p.o. at midnight except for needed medications Consent for EGD colonoscopy to be performed in a.m., 02/16/2018 Monitor labs and transfuse as needed Prep mag citrate bottles 2 and Dulcolax 20 mg p.o. 1 Supportive care Further recommendations to follow Patient was seen per myself and Dr. Guardado, note was written on his behalf
[2018-02-15] MEDS ORDERED: Magnesium Citrate Liq 300 ML Bottle PO ONE ×2 (16:00→18:00)
[2018-02-15 21:44] LABS: Hematocrit 30.4 % (39.0-51.0); Hemoglobin 9.9 gm/dL (13.0-17.0)
[2018-02-16 08:01] LABS: Hematocrit 30.1 % (39.0-51.0); Hemoglobin 9.8 gm/dL (13.0-17.0); Mean Corpuscular HGB Conc 32.5 % (32.0-36.0); Mean Corpuscular Hemoglobin 29.2 pg (27.0-34.0); Mean Corpuscular Volume 89.7 fL (80.0-100.0); Mean Platelet Volume 9.1 fL (7.0-11.0); Platelet Count 247 th/mm3 (150-450); Red Blood Count 3.35 mil/mm3 (4.50-5.90); Red Cell Distribution Width 22.9 % (11.6-17.2); White Blood Count 7.7 th/mm3 (4.0-11.0)
[2018-02-16 08:39] LABS: Calcium 8.6 mg/dL (8.5-10.1); Carbon Dioxide 29.1 meq/L (21.0-32.0); Potassium 4.5 meq/L (3.5-5.1)
--- NOTE | 2018-02-16 08:55 | P.PNIM ---
Subjective Interval history: Patient states that he feels okay. Reports having only minimal dark stools during GI prep for colonoscopy EGD. No abdominal pain. No shortness of breath. Wants to go home today regardless of results. Needs to go home and take care of his who recently had a stroke. Physical Exam Vital signs: Vital Signs 02/15/18 09:00 02/15/18 12:00 02/15/18 12:08 Temperature 98.3 F 98.6 F Pulse Rate 65 70 64 Respiratory Rate 16 16 Blood Pressure 162/75 H 157/65 H Pulse Oximetry 98 97 02/15/18 12:26 02/15/18 12:45 02/15/18 13:00 Temperature 98.6 F 98.3 F 98.6 F Pulse Rate 68 70 66 Respiratory Rate 18 18 18 Blood Pressure 168/79 H 162/75 H 158/78 H Pulse Oximetry 98 98 98 02/15/18 15:17 02/15/18 15:38 02/15/18 16:00 Temperature 98.6 F 98.5 F 98.6 F Pulse Rate 68 65 68 Respiratory Rate 18 18 12 Blood Pressure 158/88 H 163/76 H 165/78 H Pulse Oximetry 98 98 98 02/15/18 16:05 02/15/18 16:20 02/15/18 16:45 Temperature 98.6 F 98.8 F 98.2 F Pulse Rate 68 68 68 Respiratory Rate 18 18 18 Blood Pressure 168/88 H 162/88 H 162/78 H Pulse Oximetry 98 98 98 02/15/18 19:29 02/15/18 20:00 02/16/18 00:00 Temperature 98.8 F 98.3 F 98.6 F Pulse Rate 68 66 65 Respiratory Rate 18 20 16 Blood Pressure 168/78 H 164/77 H 154/75 H Pulse Oximetry 96 96 02/16/18 04:00 Temperature 98.5 F Pulse Rate 78 Respiratory Rate 17 Blood Pressure 119/66 Pulse Oximetry 95 Intake & Output 02/15/18 02/16/18 02/16/18 18:59 06:59 18:59 Intake Total 1400 / 1400 1400 / 1400 Balance 1400 / 1400 1400 / 1400 Weight 104.4 kg Intake: IV 1000 / 1000 1000 / 1000 1/2 Normal Saline Inj 1,000 ML 1000 / 1000 @ 100 mls/hr IV.CONT .Q10H [facility] Rx#:[id number] Intake (Blood Product) Amt 400 / 400 400 / 400 Rbc As-3 Leukoreduced Unit 0 / 0 400 / 400 [id number] Rbc As-3 Leukoreduced Unit 400 / 400 [id number] Other: # Voids 3 Narrative: GENERAL: This is a well-nourished, well-developed patient, in no apparent distress. CARDIOVASCULAR: Regular rate and rhythm without murmurs, gallops, or rubs. RESPIRATORY: Clear to auscultation. Breath sounds equal bilaterally. No wheezes , rales, or rhonchi. GASTROINTESTINAL: Abdomen soft, non-tender, nondistended. Normal active bowel sounds MUSCULOSKELETAL: Extremities without clubbing, cyanosis, or edema. NEURO: Alert & Oriented x4 to person, place, time, situation. Moves all ext x4 Results - Labs CBC & Chem 7: 02/16/18 06:59 02/16/18 06:59 Laboratory Results - last 24 hr 02/14/18 02/15/18 02/15/18 17:47 11:30 20:22 WBC RBC Hgb 8.0 L 9.9 L Hct 24.6 L 30.4 L MCV MCH MCHC RDW Plt Count MPV Sodium Potassium Chloride Carbon Dioxide Anion Gap BUN Creatinine Estimated GFR Random Glucose Calcium MTS Gel Crossmatch See Detail Bld Prod Order Comment 02/16/18 02/16/18 06:59 06:59 WBC 7.7 RBC 3.35 L Hgb 9.8 L Hct 30.1 L MCV 89.7 D MCH 29.2 MCHC 32.5 RDW 22.9 H D Plt Count 247 MPV 9.1 Sodium 140 Potassium 4.5 Chloride 106 Carbon Dioxide 29.1 Anion Gap 5 BUN 19 H Creatinine 1.22 Estimated GFR 59 L Random Glucose 159 H Calcium 8.6 MTS Gel Crossmatch Bld Prod Order Comment Assessment and Plan - Assessment (1) Acute GI bleeding Code(s): K92.2 - Gastrointestinal hemorrhage, unspecified Status: Acute (2) Rectal mass Code(s): K62.9 - Disease of anus and rectum, unspecified Status: Acute (3) Lung mass Code(s): R91.8 - Other nonspecific abnormal finding of lung field Status: Acute (4) Symptomatic anemia Code(s): D64.9 - Anemia, unspecified Status: Acute (5) CAROLYNN (acute kidney injury) Code(s): N17.9 - Acute kidney failure, unspecified Status: Acute - Plan 67-year-old male with history of intermittent rectal bleeding for the past year. CT of the abdomen and pelvis revealed a rectal mass concerning for malignancy. Acute on chronic rectal bleeding/rectal mass: - Consult gastroenterology. Will need direct visualization and biopsy with schedule EGD colonoscopy today. - Serial H&H and transfuse 2 units of packed red blood cell yesterday with follow-up hemoglobin 9.8. After colonoscopy EGD will discharge patient to home per his request and have him follow-up with GI as an outpatient along with oncology. Acute on chronic anemia secondary to GI bleeding: - status post 2 units of packed red blood cell with stable hemoglobin 9.8 - GI consulted as above. Lung nodules concerning for metastatic disease noted on abdominal CT: -Follow-up with CT of the chest show multiple areas concerning for metastatic disease. This was discussed with the patient today. Once again, he declined any further evaluation workup and would like to be discharged with outpatient follow-up. Diabetes mellitus type II: Hold oral hypoglycemic agents. -Sliding scale insulin with Accu-Cheks Hypertension, chronic essential: -Continue lisinopril CAROLYNN superimposed on chronic kidney disease stage III: - Probably prerenal. IVF ordered which has shown improvement during the hospitalization. Avoid nephrotoxins DVT PPx: SCDs. Chemoprophylaxis contraindicated due to GI bleeding. Discharge patient to home after EGD and colonoscopy and clearance from GI per patient's request Condition on discharge: Improved Diabetic diet as tolerated Ad Brittany activity Rx written: Stop aspirin Follow-up with primary care physician Follow-up with GI follow-up with oncology within 2 weeks. Discharge Planning: Home when medically stable.
[2018-02-16] MEDS: Lisinopril 5 MG Tablet PO SCH (09:11)
[2018-02-16 09:14] VITALS: PULSE 63; RESP 16
--- NOTE | 2018-02-16 11:30 | GIPROC ---
[facility] [address] [facility]. [facility], [address] COLONOSCOPY PROCEDURE REPORT EXAM DATE: 02/16/2018 PATIENT NAME: Ernesto Grace MR #: [id number] BIRTHDATE: 1950 ENDOSCOPIST: Dc Phillips MD ORDER #: [id number] MEDICAL RECEPTIONIST ASSISTANT: Chucho Harris STATUS: inpatient INDICATIONS: The patient is a 67 yr old male here for a colonoscopy due to rectal bleeding PROCEDURE PERFORMED: Colonoscopy with biopsy MEDICATIONS: None and Per Anesthesia. PREP QUALITY: poor ESTIMATED BLOOD LOSS: None CONSENT: The patient understands the risks and benefits of the procedure and understands that these risks include, but are not limited to: sedation, allergic reaction, infection, perforation and/or bleeding. Alternative means of evaluation and treatment include, among others: physical exam, x-rays, and/or surgical intervention. The patient elects to proceed with this endoscopic procedure. medical equipment was checked for proper function. Hand hygiene and appropriate measures for infection prevention was taken. After the risks, benefits and alternatives of the procedure were thoroughly explained, Informed consent was verified, confirmed and timeout was successfully executed by the treatment team. A digital exam revealed a palpable rectal mass The Pentax EC-3490Li endoscope was introduced through the anus and advanced to the cecum, which was identified by both the appendix and ileocecal valve. The instrument was then slowly withdrawn as the colon was fully examined. COLON FINDINGS: Moderate diverticulosis was noted in the ascending colon and descending colon. A near circumferential ulcerated, fungating and polypoid shaped mass with friable surfaces was found in the rectum. Multiple biopsies were performed. Retroflexion was performed The scope was then completely withdrawn from the patient and the procedure terminated. PROCEDURE WITHDRAWAL TIME:10minutes ADVERSE EVENTS: There were no complications. IMPRESSIONS: 1. Moderate diverticulosis was noted in the ascending colon and descending colon 2. Near circumferential mass was found in the rectum; multiple biopsies were performed 3. Retroflexion was performed 4. Revealed a palpable rectal mass RECOMMENDATIONS: 1. Await biopsy results. Biopsy results will not be ready for 7-10 days. If you don't hear from us in two weeks, call our office for results. 2. Colorectal surgery consult RECALL: Return 1 year Colonoscopy Dc Phillips MD eSigned: Dc Phillips MD 02/16/2018 11:29 AM cc: PATIENT NAME: Ernesto Grace MR#: [id number]
--- NOTE | 2018-02-16 11:38 | GIPROC ---
[facility] [address] [facility]. [facility], [address] EGD PROCEDURE REPORT EXAM DATE: 02/16/2018 PATIENT NAME: Ernesto Grace MR #: [id number] BIRTHDATE: 1950 ATTENDING: Dc Phillips MD ORDER #: [id number] AQUATICS MANAGER: Chucho Harris STATUS: inpatient INDICATIONS: The patient is a 67 yr old male here for an EGD due to dyspepsia PROCEDURE PERFORMED: EGD w/ biopsy MEDICATIONS: None and Per Anesthesia. TOPICAL ANESTHETIC: none CONSENT: The patient understands the risks and benefits of the procedure and understands that these risks include, but are not limited to: sedation, allergic reaction, infection, perforation and/or bleeding. Alternative means of evaluation and treatment include, among others: physical exam, x-rays, and/or surgical intervention. The patient elects to proceed with this endoscopic procedure. medical equipment was checked for proper function. Hand hygiene and appropriate measures for infection prevention was taken. After the risks, benefits and alternatives of the procedure were thoroughly explained, Informed consent was verified, confirmed and timeout was successfully executed by the treatment team. The patient was anesthetized with topical anesthesia and the EC-3490Li (Pedi C) endoscope was introduced through the mouth and advanced to the second portion of the duodenum. Retroflexed views revealed no abnormalities The gastroscope was then slowly withdrawn and removed. ESOPHAGUS: The mucosa of the esophagus appeared normal. Multiple biopsies were performed using cold forceps. Bx done. STOMACH: There was mild antral gastropathy noted. Cold forcep biopsies were taken at the antrum and angularis. DUODENUM: Moderate duodenal inflammation was found in the duodenal bulb. The duodenal mucosa appeared normal in the 2nd part of the duodenum. ADVERSE EVENTS: There were no complications. IMPRESSIONS: 1. The esophagus appeared normal; multiple biopsies were performed 2. There was mild antral gastropathy noted [T2] 3. Duodenal inflammation was found in the duodenal bulb 4. Normal duodenal mucosa in the 2nd part of the duodenum 5. Retroflexed views revealed no abnormalities RECOMMENDATIONS: Await biopsy results. Biopsy results will not be ready for 7-10 days. If you don't hear from us in two weeks, call our office for biopsy results. PATIENT CONDITION: stable DISPOSITION: Inpatient REPEAT EXAM: Return as needed for EGD Dc Phillips MD eSigned: Dc Phillips MD 02/16/2018 11:38 AM cc: PATIENT NAME: Ernesto Grace MR#: [id number]
[2018-02-16] MEDS ORDERED: Lidocaine PF 1% Inj 5 ML Syringe INFILTRATN ONE (12:00)
--- NOTE | 2018-02-16 14:59 | ECG ---
Date Performed: 02/16/2018 Time Performed: 09:21:13 PTAGE: 67 years EKG: SINUS BRADYCARDIA BORDERLINE ECG NO PREVIOUS TRACING DOCTOR: Salomon He Interpretating Date/Time 02/16/2018 14:59:02
[2018-02-16 15:37] VITALS: BP 171/83; TEMP 98.1; O2SAT 98
== END 2018-02-16 15:02 | disposition home or self-care (01) ==
LOC: NEPE 11:17 → NEDA 18:46 → N06 20:00
PROVIDERS: ADMIT Family Medicine; ATTEND Family Medicine
PROC: COLONOS (2018-02-16 10:47)
PROC: PANENDO (2018-02-16 10:47)